=== PATIENT | male | born 1950 | race Caucasian/White ===

== ENCOUNTER 2019-01-26 09:15 | Outpatient (CLI) | payer MEDICARE, BC ==
[~2019-01-26 09:15] MED LIST: METF25CR; NIFE10CA
== END 2019-01-26 23:59 | disposition home or self-care (01) ==
LOC: WOU 09:15
PROVIDERS: ATTEND Podiatrist Foot & Ankle Surgery
DX: E11.621 Type 2 diabetes mellitus with foot ulcer (principal); L97.323 Non-pressure chronic ulcer of left ankle with necrosis of muscle; L97.422 Non-pressure chronic ulcer of left heel and midfoot with fat layer exposed; E11.42 Type 2 diabetes mellitus with diabetic polyneuropathy; Q05.9 Spina bifida, unspecified; M62.3 Immobility syndrome (paraplegic); Z79.84 Long term (current) use of oral hypoglycemic drugs
CPT/HCPCS: 11042; 11043; A6402 ×2

== ENCOUNTER 2019-02-02 08:20 | Outpatient (CLI) | payer MEDICARE, BC | END 2019-02-02 23:59 | disposition home or self-care (01) | LOC: WOU 08:20 | PROVIDERS: ATTEND Podiatrist Foot & Ankle Surgery | DX: E11.621 Type 2 diabetes mellitus with foot ulcer (principal); L97.323 Non-pressure chronic ulcer of left ankle with necrosis of muscle; L97.422 Non-pressure chronic ulcer of left heel and midfoot with fat layer exposed; E11.42 Type 2 diabetes mellitus with diabetic polyneuropathy; Q05.9 Spina bifida, unspecified; M62.3 Immobility syndrome (paraplegic); Z79.84 Long term (current) use of oral hypoglycemic drugs | CPT/HCPCS: 11043; 87070; A6402; J7040; 87186-TC ==

== ENCOUNTER 2019-02-05 10:20 | Outpatient (CLI) | payer MEDICARE, BC | END 2019-02-05 23:59 | disposition home or self-care (01) | LOC: WOU 10:20 | PROVIDERS: ATTEND Podiatrist Foot & Ankle Surgery | DX: S81.802A Unspecified open wound, left lower leg, initial encounter (principal); X58.XXXA Exposure to other specified factors, initial encounter; Y92.89 Other specified places as the place of occurrence of the external cause; R60.0 Localized edema | CPT/HCPCS: 93970-TC ==

== ENCOUNTER 2019-02-09 08:20 | Outpatient (CLI) | payer MEDICARE, BC | END 2019-02-09 23:59 | disposition home or self-care (01) | LOC: WOU 08:20 | PROVIDERS: ATTEND Podiatrist Foot & Ankle Surgery | DX: E11.621 Type 2 diabetes mellitus with foot ulcer (principal); L97.323 Non-pressure chronic ulcer of left ankle with necrosis of muscle; L97.422 Non-pressure chronic ulcer of left heel and midfoot with fat layer exposed; E11.42 Type 2 diabetes mellitus with diabetic polyneuropathy; Q05.9 Spina bifida, unspecified; M62.3 Immobility syndrome (paraplegic); Z79.84 Long term (current) use of oral hypoglycemic drugs; Z87.891 Personal history of nicotine dependence | CPT/HCPCS: 11043; A6402; A6452 ×2; J7040 ==

== ENCOUNTER 2019-02-16 08:20 | Outpatient (CLI) | payer MEDICARE, BC | END 2019-02-16 23:59 | disposition home or self-care (01) | LOC: WOU 08:20 | PROVIDERS: ATTEND Podiatrist Foot & Ankle Surgery | DX: E11.621 Type 2 diabetes mellitus with foot ulcer (principal); L97.323 Non-pressure chronic ulcer of left ankle with necrosis of muscle; L97.422 Non-pressure chronic ulcer of left heel and midfoot with fat layer exposed; E11.42 Type 2 diabetes mellitus with diabetic polyneuropathy; Z79.84 Long term (current) use of oral hypoglycemic drugs; Q05.9 Spina bifida, unspecified; M62.3 Immobility syndrome (paraplegic); Z87.891 Personal history of nicotine dependence | CPT/HCPCS: 11043; A6402; A6452 ==

== ENCOUNTER 2019-02-23 08:20 | Outpatient (CLI) | payer MEDICARE, BC | END 2019-02-23 23:59 | disposition home or self-care (01) | LOC: WOU 08:20 | PROVIDERS: ATTEND Podiatrist Foot & Ankle Surgery | DX: E11.621 Type 2 diabetes mellitus with foot ulcer (principal); L97.323 Non-pressure chronic ulcer of left ankle with necrosis of muscle; E11.42 Type 2 diabetes mellitus with diabetic polyneuropathy; Z79.84 Long term (current) use of oral hypoglycemic drugs; Q05.9 Spina bifida, unspecified; M62.3 Immobility syndrome (paraplegic); I10 Essential (primary) hypertension; Z87.891 Personal history of nicotine dependence | CPT/HCPCS: 15271; A6402; A6452; J7040; Q4196 ==

== ENCOUNTER 2019-03-02 08:15 | Outpatient (CLI) | payer MEDICARE, BC | END 2019-03-02 23:59 | disposition home or self-care (01) | LOC: WOU 08:15 | PROVIDERS: ATTEND Podiatrist Foot & Ankle Surgery | DX: E11.621 Type 2 diabetes mellitus with foot ulcer (principal); E11.622 Type 2 diabetes mellitus with other skin ulcer; L97.323 Non-pressure chronic ulcer of left ankle with necrosis of muscle; E11.42 Type 2 diabetes mellitus with diabetic polyneuropathy; Z79.84 Long term (current) use of oral hypoglycemic drugs; Q05.9 Spina bifida, unspecified; M62.3 Immobility syndrome (paraplegic); I10 Essential (primary) hypertension; Z87.891 Personal history of nicotine dependence | CPT/HCPCS: 15271; A6402 ×2; A6452; J7040; Q4196 ==

== ENCOUNTER 2019-03-09 08:20 | Outpatient (CLI) | payer MEDICARE, BC | END 2019-03-09 23:59 | disposition home or self-care (01) | LOC: WOU 08:20 | PROVIDERS: ATTEND Podiatrist Foot & Ankle Surgery | DX: E11.621 Type 2 diabetes mellitus with foot ulcer (principal); E11.622 Type 2 diabetes mellitus with other skin ulcer; L97.323 Non-pressure chronic ulcer of left ankle with necrosis of muscle; L97.422 Non-pressure chronic ulcer of left heel and midfoot with fat layer exposed; E11.42 Type 2 diabetes mellitus with diabetic polyneuropathy; Q05.9 Spina bifida, unspecified; M62.3 Immobility syndrome (paraplegic); Z79.84 Long term (current) use of oral hypoglycemic drugs | CPT/HCPCS: 11043; A6402; A6452 ==

== ENCOUNTER → 2019-03-16 | Outpatient (CLI) | payer MEDICARE, BC | END | disposition home or self-care (01) | LOC: WOU 08:15 | PROVIDERS: ATTEND Podiatrist Foot & Ankle Surgery | DX: E11.621 Type 2 diabetes mellitus with foot ulcer (principal); E11.622 Type 2 diabetes mellitus with other skin ulcer; L97.323 Non-pressure chronic ulcer of left ankle with necrosis of muscle; L97.422 Non-pressure chronic ulcer of left heel and midfoot with fat layer exposed; E11.42 Type 2 diabetes mellitus with diabetic polyneuropathy; Z79.84 Long term (current) use of oral hypoglycemic drugs; Q05.9 Spina bifida, unspecified; M62.3 Immobility syndrome (paraplegic); I10 Essential (primary) hypertension; Z87.891 Personal history of nicotine dependence | CPT/HCPCS: 11043; A6402; A6452 ==

== ENCOUNTER 2019-03-30 08:18 | Outpatient (CLI) | payer MEDICARE, BC | END 2019-03-30 23:59 | disposition home or self-care (01) | LOC: WOU 08:18 | PROVIDERS: ATTEND Podiatrist Foot & Ankle Surgery | DX: E11.622 Type 2 diabetes mellitus with other skin ulcer (principal); L97.323 Non-pressure chronic ulcer of left ankle with necrosis of muscle; E11.42 Type 2 diabetes mellitus with diabetic polyneuropathy; Z79.84 Long term (current) use of oral hypoglycemic drugs; Q05.9 Spina bifida, unspecified; M62.3 Immobility syndrome (paraplegic); I10 Essential (primary) hypertension | CPT/HCPCS: 11043; A6402 ==

== ENCOUNTER 2019-04-06 08:30 | Outpatient (CLI) | payer MEDICARE, BC | END 2019-04-06 23:59 | disposition home or self-care (01) | LOC: WOU 08:30 | PROVIDERS: ATTEND Podiatrist Foot & Ankle Surgery | DX: E11.622 Type 2 diabetes mellitus with other skin ulcer (principal); L97.323 Non-pressure chronic ulcer of left ankle with necrosis of muscle; E11.42 Type 2 diabetes mellitus with diabetic polyneuropathy; Z79.84 Long term (current) use of oral hypoglycemic drugs; Q05.9 Spina bifida, unspecified; M62.3 Immobility syndrome (paraplegic); I10 Essential (primary) hypertension; Z87.891 Personal history of nicotine dependence | CPT/HCPCS: 11043; 11046; A6402 ==

== ENCOUNTER 2019-04-13 08:10 | Outpatient (CLI) | payer MEDICARE, BC | END 2019-04-13 23:59 | disposition home or self-care (01) | LOC: WOU 08:10 | PROVIDERS: ATTEND Podiatrist Foot & Ankle Surgery | DX: E11.622 Type 2 diabetes mellitus with other skin ulcer (principal); E11.621 Type 2 diabetes mellitus with foot ulcer; L97.323 Non-pressure chronic ulcer of left ankle with necrosis of muscle; L97.422 Non-pressure chronic ulcer of left heel and midfoot with fat layer exposed; E11.42 Type 2 diabetes mellitus with diabetic polyneuropathy; Z79.84 Long term (current) use of oral hypoglycemic drugs; Q05.9 Spina bifida, unspecified; M62.3 Immobility syndrome (paraplegic) | CPT/HCPCS: 11043; 11046; A6402 ==

== ENCOUNTER 2019-04-20 08:10 | Outpatient (CLI) | payer MEDICARE, BC | END 2019-04-20 23:59 | disposition home or self-care (01) | LOC: WOU 08:10 | PROVIDERS: ATTEND Podiatrist Foot & Ankle Surgery | DX: E11.622 Type 2 diabetes mellitus with other skin ulcer (principal); E11.621 Type 2 diabetes mellitus with foot ulcer; L97.322 Non-pressure chronic ulcer of left ankle with fat layer exposed; L97.323 Non-pressure chronic ulcer of left ankle with necrosis of muscle; L97.422 Non-pressure chronic ulcer of left heel and midfoot with fat layer exposed; E11.42 Type 2 diabetes mellitus with diabetic polyneuropathy; Z79.84 Long term (current) use of oral hypoglycemic drugs; Q05.9 Spina bifida, unspecified; M62.3 Immobility syndrome (paraplegic); I10 Essential (primary) hypertension; Z87.891 Personal history of nicotine dependence | CPT/HCPCS: 11043; 11046; A6402 ==

== ENCOUNTER 2019-04-27 08:05 | Outpatient (CLI) | payer MEDICARE, BC | END 2019-04-27 23:59 | disposition home or self-care (01) | LOC: WOU 08:05 | PROVIDERS: ATTEND Podiatrist Foot & Ankle Surgery | DX: E11.622 Type 2 diabetes mellitus with other skin ulcer (principal); E11.621 Type 2 diabetes mellitus with foot ulcer; L97.325 Non-pressure chronic ulcer of left ankle with muscle involvement without evidence of necrosis; L97.323 Non-pressure chronic ulcer of left ankle with necrosis of muscle; L97.422 Non-pressure chronic ulcer of left heel and midfoot with fat layer exposed; E11.42 Type 2 diabetes mellitus with diabetic polyneuropathy; Z79.84 Long term (current) use of oral hypoglycemic drugs; Q05.9 Spina bifida, unspecified; M62.3 Immobility syndrome (paraplegic); I10 Essential (primary) hypertension | CPT/HCPCS: 11043; 11046; 87070; 87075; A6402; 87186-TC ==

== ENCOUNTER 2019-05-04 08:15 | Outpatient (CLI) | payer MEDICARE, BC | END 2019-05-04 23:59 | disposition home or self-care (01) | LOC: WOU 08:15 | PROVIDERS: ATTEND Podiatrist Foot & Ankle Surgery | DX: E11.622 Type 2 diabetes mellitus with other skin ulcer (principal); E11.621 Type 2 diabetes mellitus with foot ulcer; L97.325 Non-pressure chronic ulcer of left ankle with muscle involvement without evidence of necrosis; L97.323 Non-pressure chronic ulcer of left ankle with necrosis of muscle; L97.422 Non-pressure chronic ulcer of left heel and midfoot with fat layer exposed; E11.42 Type 2 diabetes mellitus with diabetic polyneuropathy; Z79.84 Long term (current) use of oral hypoglycemic drugs; L03.116 Cellulitis of left lower limb; Q05.9 Spina bifida, unspecified; M62.3 Immobility syndrome (paraplegic); I10 Essential (primary) hypertension; Z87.891 Personal history of nicotine dependence | CPT/HCPCS: 11043; 11046; A6402 ==

== ENCOUNTER 2023-03-11 09:15 | Outpatient (CLI) | payer MEDICARE | END 2023-03-11 23:59 | disposition home or self-care (01) | LOC: WOU 09:15 | PROVIDERS: ATTEND Podiatrist Foot & Ankle Surgery | DX: E11.621 Type 2 diabetes mellitus with foot ulcer (principal); L97.512 Non-pressure chronic ulcer of other part of right foot with fat layer exposed; L97.513 Non-pressure chronic ulcer of other part of right foot with necrosis of muscle; E11.622 Type 2 diabetes mellitus with other skin ulcer; L97.318 Non-pressure chronic ulcer of right ankle with other specified severity; E11.40 Type 2 diabetes mellitus with diabetic neuropathy, unspecified; Q05.9 Spina bifida, unspecified; G82.20 Paraplegia, unspecified; Z99.3 Dependence on wheelchair; I10 Essential (primary) hypertension | CPT/HCPCS: 11042; 11043 ==

== ENCOUNTER 2023-03-14 09:34 | Outpatient (CLI) | payer MEDICARE ==
[2023-03-14] MEDS ORDERED: CLOTRIMAZOLE 1% 15 GM TUBE TP ONE (10:03)
[2023-03-14 11:59] LABS: ALBUMIN 3.3 g/dL (3.4-5.0); BILIRUBIN,TOTAL 0.3 mg/dL (0.2-1.0); CALCIUM, SERUM 8.5 mg/dL (8.5-10.1); CREATININE 1.2 mg/dL (0.6-1.3); POTASSIUM 3.8 mmol/L (3.5-5.1); TOTAL PROTEIN, SERUM 7.1 g/dL (6.4-8.2)
== END 2023-03-14 23:59 | disposition home or self-care (01) ==
LOC: WOU 09:34
PROVIDERS: ATTEND Podiatrist Foot & Ankle Surgery
DX: E11.621 Type 2 diabetes mellitus with foot ulcer (principal); L97.512 Non-pressure chronic ulcer of other part of right foot with fat layer exposed; L97.513 Non-pressure chronic ulcer of other part of right foot with necrosis of muscle; E11.622 Type 2 diabetes mellitus with other skin ulcer; L97.318 Non-pressure chronic ulcer of right ankle with other specified severity; E11.40 Type 2 diabetes mellitus with diabetic neuropathy, unspecified; Q05.9 Spina bifida, unspecified; G82.20 Paraplegia, unspecified; Z99.3 Dependence on wheelchair; I10 Essential (primary) hypertension; Z79.84 Long term (current) use of oral hypoglycemic drugs
CPT/HCPCS: 11043; 11042; 36415; 80053; A6197 ×2

== ENCOUNTER 2023-03-18 09:27 | Outpatient (CLI) | payer MEDICARE ==
[2023-03-18] MEDS ORDERED: CLOTRIMAZOLE 1% 15 GM TUBE TP ONE (10:27)
== END 2023-03-18 23:59 | disposition home or self-care (01) ==
LOC: WOU 09:27
PROVIDERS: ATTEND Podiatrist Foot & Ankle Surgery
DX: E11.621 Type 2 diabetes mellitus with foot ulcer (principal); L97.512 Non-pressure chronic ulcer of other part of right foot with fat layer exposed; L97.513 Non-pressure chronic ulcer of other part of right foot with necrosis of muscle; E11.40 Type 2 diabetes mellitus with diabetic neuropathy, unspecified; Q05.9 Spina bifida, unspecified; G82.20 Paraplegia, unspecified; I10 Essential (primary) hypertension; Z99.3 Dependence on wheelchair; Z79.84 Long term (current) use of oral hypoglycemic drugs
CPT/HCPCS: 11043; 11042; A6197

== ENCOUNTER 2023-03-21 09:31 | Outpatient (CLI) | payer MEDICARE ==
[2023-03-21] MEDS ORDERED: CLOTRIMAZOLE 1% 15 GM TUBE TP ONE (10:12)
== END 2023-03-21 23:59 | disposition home or self-care (01) ==
LOC: WOU 09:31
PROVIDERS: ATTEND Podiatrist Foot & Ankle Surgery
DX: E11.621 Type 2 diabetes mellitus with foot ulcer (principal); L97.512 Non-pressure chronic ulcer of other part of right foot with fat layer exposed; L97.513 Non-pressure chronic ulcer of other part of right foot with necrosis of muscle; E11.40 Type 2 diabetes mellitus with diabetic neuropathy, unspecified; Z79.84 Long term (current) use of oral hypoglycemic drugs; Q05.9 Spina bifida, unspecified; G82.20 Paraplegia, unspecified; I10 Essential (primary) hypertension; Z99.3 Dependence on wheelchair
CPT/HCPCS: 11043; 11042; A6197

== ENCOUNTER 2023-03-28 09:22 | Outpatient (CLI) | payer MEDICARE ==
[2023-03-28] MEDS ORDERED: MUPIROCIN 2% CREAM 15 GM TUBE TP ONE (09:50)
== END 2023-03-28 23:59 | disposition home or self-care (01) ==
LOC: WOU 09:22
PROVIDERS: ATTEND Podiatrist Foot & Ankle Surgery
DX: E11.621 Type 2 diabetes mellitus with foot ulcer (principal); L97.512 Non-pressure chronic ulcer of other part of right foot with fat layer exposed; L97.513 Non-pressure chronic ulcer of other part of right foot with necrosis of muscle; E11.40 Type 2 diabetes mellitus with diabetic neuropathy, unspecified; G82.20 Paraplegia, unspecified; Z79.84 Long term (current) use of oral hypoglycemic drugs
CPT/HCPCS: 11042; 11043; A6197

== ENCOUNTER 2023-04-08 09:19 | Outpatient (CLI) | payer MEDICARE ==
[2023-04-08] MEDS ORDERED: MUPIROCIN 2% CREAM 15 GM TUBE TP ONE (09:50)
== END 2023-04-08 23:59 | disposition home or self-care (01) ==
LOC: WOU 09:19
PROVIDERS: ATTEND Podiatrist Foot & Ankle Surgery
DX: E11.621 Type 2 diabetes mellitus with foot ulcer (principal); L97.512 Non-pressure chronic ulcer of other part of right foot with fat layer exposed; L97.518 Non-pressure chronic ulcer of other part of right foot with other specified severity; E11.40 Type 2 diabetes mellitus with diabetic neuropathy, unspecified; G82.20 Paraplegia, unspecified; I10 Essential (primary) hypertension; Z99.3 Dependence on wheelchair; Z79.84 Long term (current) use of oral hypoglycemic drugs
CPT/HCPCS: 11043; 11042; A6197